=== PATIENT | male | born 1965 | race Caucasian/White ===

== ENCOUNTER 2017-01-22 12:57 | Emergency (ER) | payer SELFPAY ==
[~2017-01-22] VITALS: Ht 160 cm; Wt 71.0 kg
[2017-01-22 16:25] VITALS: BP 127/85
== END 2017-01-22 16:26 | disposition home or self-care (01) ==
LOC: ER 12:57
DX: K21.9 Gastro-esophageal reflux disease without esophagitis (principal); R11.2 Nausea with vomiting, unspecified
CPT/HCPCS: 99283